=== PATIENT | female | born 2000 | race Two or more races ===

== ENCOUNTER 2023-10-01 11:28 | Inpatient (IN) | payer OTHER, SELFPAY ==
[~2023-10-01 11:28] MED LIST: Magnevist 469MG/ML 20 ML VIAL ONE
[2023-10-01 12:34] VITALS: BMI 29.8
[2023-10-01] MEDS ORDERED: Acetaminophen 325 MG TAB PO PRN (13:07)
[2023-10-01] MEDS ORDERED: Senokot S 8.6-50 MG TAB PO PRN (13:07)
[2023-10-01] MEDS ORDERED: Ondansetron ODT 4 MG TAB PO PRN (13:07)
[2023-10-01] MEDS ORDERED: Calcium Carbonate 500 MG ChewTAB PO PRN (13:07)
[2023-10-01] MEDS ORDERED: Dextrose 5%-Lactated Ringers 1,000 ML IV SCH ×2 (13:15→13:42)
[2023-10-01] MEDS ORDERED: Morphine 2 MG/ML VIAL SLOW IVP PRN (13:17)
[2023-10-01] MEDS ORDERED: HYDROcodone/Acetaminophen 5/325 mg Tablet PO PRN (13:18)
[2023-10-01] MEDS ORDERED: Labetalol HCl 100 MG/20 ML VIAL SLOW IVP PRN (13:25)
[2023-10-01] MEDS: Dextrose 5 % And 0.9 % NaCl 1,000 ML IV SCH ×2 (14:18→22:08)
[2023-10-01] MEDS: Pantoprazole 40 MG VIAL IVP SCH (14:19)
[2023-10-01 14:26] LABS: Lactic Acid 2.5 mmol/L (0.5-2.2)
[2023-10-01 14:29] LABS: Anion Gap 17 mmol/L (10-20); BUN (Urea Nitrogen) 11 mg/dL (7.0-18.7); Calc. Creatinine Clearance 114 mL/min (70-130); Calcium 8.9 mg/dL (7.8-10.44); Carbon Dioxide 23 mmol/L (22-29); Chloride 100 mmol/L (98-107); Estimated GFR 79; Glucose 186 mg/dL (70-105); Potassium 5.2 mmol/L (3.5-5.1); Sodium 135 mmol/L (136-145)
[2023-10-01 14:31] LABS: Magnesium 1.4 mg/dL (1.6-2.6); Phosphorus 4.3 mg/dL (2.3-4.7)
[2023-10-01] MEDS: Morphine 4 MG/ML VIAL SLOW IVP PRN ×3 (14:44→22:14)
[2023-10-01] MEDS: Magnesium 2 GM/50 ML(in water) 2 GM in Premix 1 BAG IVPB SCH ×2 (16:26→17:33)
[2023-10-01] MEDS ORDERED: Aripiprazole 10 MG TAB PO SCH (21:00)
[2023-10-01] MEDS: Multivit, Therapeutic 1 TAB PO SCH (22:00)
[2023-10-01] MEDS: Thiamine 100 MG TAB PO SCH (22:01)
[2023-10-01] MEDS: Folic Acid 1 MG TAB PO SCH (22:01)
[2023-10-01] MEDS: Sertraline 100 MG TAB PO SCH (22:01)
[2023-10-01] MEDS: levETIRAcetam 500 MG TAB PO SCH (22:09)
[2023-10-02] MEDS ORDERED: Lactated Ringer's 1,000 ML IV SCH (01:30)
[2023-10-02] MEDS: Morphine 4 MG/ML VIAL SLOW IVP PRN ×4 (03:37→21:35)
[2023-10-02] MEDS: Ondansetron PF 4 MG/2 ML Vial IVP PRN ×2 (04:01→12:38)
[2023-10-02] MEDS: Dextrose 5 % And 0.9 % NaCl 1,000 ML IV SCH ×2 (04:30→20:50)
[2023-10-02 05:13] LABS: #Monocytes 0.8 10x3/uL (0.0-1.1); #Neutrophils 7.6 10x3/uL (1.5-8.4); %Basophils 0.4 % (0.0-2.0); %Eosinophils 0.1 % (0.0-6.0); %Lymphocytes 6.9 % (18.0-47.0); %Monocytes 9.1 % (0.0-10.0); Hematocrit 37.3 % (34.9-44.5); Hemoglobin 12.7 g/dL (12.0-15.5); Mean Corpuscular Hemoglobin 32.2 pg (27.0-33.0); Mean Corpuscular Volume 94.7 fl (81.6-98.3); Mean Platelet Volume 11.5 fl (7.4-10.4); Platelet Count 163 10x3/uL (150-450); RBC Distribution Width 15.9 % (11.5-14.5); Red Blood Cell (RBC) Count 3.94 10x6/uL (3.90-5.03); White Blood Cell (WBC) Count 9.1 10x3/uL (3.5-10.5)
[2023-10-02 05:21] LABS: Lactic Acid 2.6 mmol/L (0.5-2.2)
[2023-10-02 05:37] LABS: ALT (SGPT) 40 U/L (8-55); AST (SGOT) 66 U/L (5-34); Alkaline Phosphatase 74 U/L (40-110); Anion Gap 15 mmol/L (10-20); BUN (Urea Nitrogen) 13 mg/dL (7.0-18.7); Bilirubin, Total 1.8 mg/dL (0.2-1.2); Calc. Creatinine Clearance 107 mL/min (70-130); Calcium 8.1 mg/dL (7.8-10.44); Carbon Dioxide 19 mmol/L (22-29); Chloride 100 mmol/L (98-107); Estimated GFR 73; Globulin 2.5 g/dL (2.4-3.5); Glucose 367 mg/dL (70-105); Lipase Greater than 1000 U/L (8-78); Magnesium 2.1 mg/dL (1.6-2.6); Phosphorus 2.7 mg/dL (2.3-4.7); Protein, Total 5.5 g/dL (6.0-8.3); Sodium 129 mmol/L (136-145)
[2023-10-02 05:46] LABS: Free T4 (Free Thyroxine) 0.75 ng/dL (0.70-1.48)
[2023-10-02] MEDS ORDERED: Dextrose 5% in Water 1,000 ML IV PRN (07:44)
[2023-10-02] MEDS ORDERED: HumaLOG 300 UNITS/3 ML VIAL SC PRN (07:44)
[2023-10-02] MEDS ORDERED: Glucagon 1 MG/ML KIT IM PRN (07:44)
[2023-10-02] MEDS ORDERED: Dextrose 50% Abboject 50 ML SYRINGE SLOW IVP PRN (07:44)
[2023-10-02] MEDS: Albumin 25% 25 GM/100 ML BOT IVPB SCH ×3 (08:28→20:21)
[2023-10-02] MEDS: levETIRAcetam 500 MG TAB PO SCH ×2 (08:40→20:21)
[2023-10-02] MEDS ORDERED: Acetaminophen 325 MG TAB PO PRN (08:46)
[2023-10-02] MEDS ORDERED: Sodium Bicarbonate 150 MEQ in Dextrose 5% in Water 1,000 ML IV SCH ×2 (09:00)
[2023-10-02] MEDS ORDERED: Aripiprazole 10 MG TAB PO SCH (09:00)
[2023-10-02] MEDS ORDERED: levETIRAcetam 500 MG/5 ML VIAL SLOW IVP PRN (09:00)
[2023-10-02] MEDS ORDERED: Sertraline 100 MG TAB PO SCH (09:00)
[2023-10-02] MEDS: Sodium Chloride 0.9% 1,000 ML IV SCH ×2 (09:01→14:27)
[2023-10-02 14:00] LABS: Hemoglobin A1c 4.9 % (4.0-6.0)
[2023-10-02] MEDS: Pantoprazole 40 MG VIAL IVP SCH (14:27)
[2023-10-02] MEDS ORDERED: Sodium Chloride 0.9% 1,000 ML IV SCH (14:45)
[2023-10-02] MEDS: HumaLOG 300 UNITS/3 ML VIAL SC PRN (16:50)
[2023-10-02 17:30] LABS: Anion Gap 16 mmol/L (10-20); BUN (Urea Nitrogen) 12 mg/dL (7.0-18.7); Calc. Creatinine Clearance 117 mL/min (70-130); Calcium 8.1 mg/dL (7.8-10.44); Carbon Dioxide 21 mmol/L (22-29); Chloride 101 mmol/L (98-107); Estimated GFR 81; Glucose 314 mg/dL (70-105); Potassium 4.7 mmol/L (3.5-5.1); Sodium 133 mmol/L (136-145)
[2023-10-02] MEDS: Folic Acid 1 MG TAB PO SCH (20:21)
[2023-10-02] MEDS: Multivit, Therapeutic 1 TAB PO SCH (20:21)
[2023-10-02] MEDS: Thiamine 100 MG TAB PO SCH (20:21)
[2023-10-02] MEDS: Sertraline 100 MG TAB PO SCH (20:21)
[2023-10-02] MEDS: Labetalol HCl 100 MG/20 ML VIAL SLOW IVP PRN (20:37)
[2023-10-03] MEDS: Sodium Chloride 0.9% 1,000 ML IV SCH ×5 (03:07→18:46)
[2023-10-03] MEDS: Albumin 25% 25 GM/100 ML BOT IVPB SCH (03:07)
[2023-10-03 04:15] LABS: Hematocrit 31.3 % (34.9-44.5); Hemoglobin 10.5 g/dL (12.0-15.5); Mean Corpuscular HGB CONC 33.5 g/dL (32.0-36.0); Mean Corpuscular Hemoglobin 32.2 pg (27.0-33.0); Mean Platelet Volume 11.8 fl (7.4-10.4); Platelet Count 138 10x3/uL (150-450); RBC Distribution Width 16.1 % (11.5-14.5); Red Blood Cell (RBC) Count 3.26 10x6/uL (3.90-5.03); White Blood Cell (WBC) Count 7.9 10x3/uL (3.5-10.5)
[2023-10-03 04:17] LABS: Lactic Acid 1.1 mmol/L (0.5-2.2)
[2023-10-03 04:23] LABS: MDiff Complete? YES
[2023-10-03 04:29] LABS: ALT (SGPT) 28 U/L (8-55); AST (SGOT) 56 U/L (5-34); Albumin 3.4 g/dL (3.5-5.0); Alkaline Phosphatase 55 U/L (40-110); Anion Gap 17 mmol/L (10-20); BUN (Urea Nitrogen) 9 mg/dL (7.0-18.7); Bilirubin, Total 1.6 mg/dL (0.2-1.2); Calc. Creatinine Clearance 149 mL/min (70-130); Carbon Dioxide 19 mmol/L (22-29); Chloride 102 mmol/L (98-107); Estimated GFR 109; Globulin 2.4 g/dL (2.4-3.5); Glucose 269 mg/dL (70-105); Lipase 930 U/L (8-78); Magnesium 2.3 mg/dL (1.6-2.6); Phosphorus 1.9 mg/dL (2.3-4.7); Potassium 4.3 mmol/L (3.5-5.1); Protein, Total 5.8 g/dL (6.0-8.3); Sodium 134 mmol/L (136-145)
[2023-10-03 04:51] LABS: Platelet Adequacy Comment Appears Decreased; RBC Morph Comment Within Normal Limits
[2023-10-03 04:54] LABS: Band 10 % (5-11); Eosinophils 1 % (0-10); Lymphocytes 10 % (21-51); Monocytes 8 % (0-10); Neutrophil 71 % (42-75)
[2023-10-03] MEDS: HumaLOG 300 UNITS/3 ML VIAL SC PRN ×5 (06:04→23:40)
[2023-10-03] MEDS: Ondansetron PF 4 MG/2 ML Vial IVP PRN ×3 (06:05→20:12)
[2023-10-03] MEDS: levETIRAcetam 500 MG TAB PO SCH ×2 (08:42→20:13)
[2023-10-03] MEDS ORDERED: Sodium Phosphate 15 MMOL in Sodium Chloride 0.9% 250 ML 250 ML IVPB SCH (09:00)
[2023-10-03] MEDS: Morphine 4 MG/ML VIAL SLOW IVP PRN (09:33)
[2023-10-03] MEDS: Pantoprazole 40 MG VIAL IVP SCH (14:12)
[2023-10-03] MEDS: Morphine 2 MG/ML VIAL SLOW IVP PRN ×3 (14:12→23:47)
[2023-10-03] MEDS: Multivit, Therapeutic 1 TAB PO SCH (20:13)
[2023-10-03] MEDS: Thiamine 100 MG TAB PO SCH (20:13)
[2023-10-03] MEDS: Sertraline 100 MG TAB PO SCH (20:13)
[2023-10-03] MEDS: Folic Acid 1 MG TAB PO SCH (20:13)
[2023-10-03] MEDS: Labetalol HCl 100 MG/20 ML VIAL SLOW IVP PRN (23:40)
[2023-10-04 04:41] LABS: ALT (SGPT) 24 U/L (8-55); AST (SGOT) 33 U/L (5-34); Alkaline Phosphatase 44 U/L (40-110); Anion Gap 11 mmol/L (10-20); BUN (Urea Nitrogen) 4 mg/dL (7.0-18.7); Bilirubin, Total 1.1 mg/dL (0.2-1.2); Calc. Creatinine Clearance 184 mL/min (70-130); Calcium 7.8 mg/dL (7.8-10.44); Carbon Dioxide 24 mmol/L (22-29); Chloride 104 mmol/L (98-107); Estimated GFR 129; Globulin 2.3 g/dL (2.4-3.5); Glucose 158 mg/dL (70-105); Hematocrit 31.2 % (34.9-44.5); Hemoglobin 10.4 g/dL (12.0-15.5); Lipase 187 U/L (8-78); Magnesium 2.2 mg/dL (1.6-2.6); Mean Corpuscular HGB CONC 33.3 g/dL (32.0-36.0); Mean Corpuscular Hemoglobin 31.7 pg (27.0-33.0); Mean Corpuscular Volume 95.1 fl (81.6-98.3); Mean Platelet Volume 11.3 fl (7.4-10.4); Phosphorus 1.3 mg/dL (2.3-4.7); Platelet Count 171 10x3/uL (150-450); Potassium 3.4 mmol/L (3.5-5.1); Protein, Total 5.3 g/dL (6.0-8.3); RBC Distribution Width 16.4 % (11.5-14.5); Red Blood Cell (RBC) Count 3.28 10x6/uL (3.90-5.03); Sodium 136 mmol/L (136-145); White Blood Cell (WBC) Count 4.3 10x3/uL (3.5-10.5)
[2023-10-04] MEDS ORDERED: Potassium Phosphate 15 MMOL in Sodium Chloride 0.9% 100 ML IVPB SCH (05:15)
[2023-10-04 05:23] LABS: MDiff Complete? YES
[2023-10-04 05:48] LABS: Band 9 % (5-11); Eosinophils 2 % (0-10); Lymphocytes 13 % (21-51); Monocytes 13 % (0-10); Neutrophil 61 % (42-75); Nucleated RBC (Manual Ct) 1 % (0); Reactive Lymphocytes 2 % (0-10)
[2023-10-04 05:50] LABS: Anisocytosis SLIGHT = 6-15 cells (100X) (0-5/hpf); Hypochromia SLIGHT = 6-15 cells (100X) (0-5/hpf); Macrocytosis SLIGHT = 6-15 cells (100X) (0-5/hpf); Microcytosis SLIGHT = 6-15 cells (100X) (0-5/hpf); Platelet Adequacy Comment Appears Adequate
[2023-10-04] MEDS: Sodium Chloride 0.9% 1,000 ML IV SCH ×2 (08:56→15:32)
[2023-10-04] MEDS: levETIRAcetam 500 MG TAB PO SCH ×2 (08:58→21:16)
[2023-10-04] MEDS: HYDROcodone/Acetaminophen 5/325 mg Tablet PO PRN ×2 (10:31→18:31)
[2023-10-04] MEDS: Pantoprazole 40 MG VIAL IVP SCH (15:16)
[2023-10-04] MEDS: Ondansetron PF 4 MG/2 ML Vial IVP PRN ×2 (15:32→21:08)
[2023-10-04] MEDS: HumaLOG 300 UNITS/3 ML VIAL SC PRN (15:34)
[2023-10-04] MEDS: Morphine 2 MG/ML VIAL SLOW IVP PRN (21:08)
[2023-10-04] MEDS: Multivit, Therapeutic 1 TAB PO SCH (21:16)
[2023-10-04] MEDS: Thiamine 100 MG TAB PO SCH (21:16)
[2023-10-04] MEDS: Folic Acid 1 MG TAB PO SCH (21:16)
[2023-10-04] MEDS: Sertraline 100 MG TAB PO SCH (21:16)
[2023-10-05 04:05] LABS: Hematocrit 31.4 % (34.9-44.5); Hemoglobin 10.6 g/dL (12.0-15.5); Mean Corpuscular HGB CONC 33.8 g/dL (32.0-36.0); Mean Corpuscular Hemoglobin 32.2 pg (27.0-33.0); Mean Corpuscular Volume 95.4 fl (81.6-98.3); Mean Platelet Volume 11.5 fl (7.4-10.4); Platelet Count 185 10x3/uL (150-450); RBC Distribution Width 16.3 % (11.5-14.5); Red Blood Cell (RBC) Count 3.29 10x6/uL (3.90-5.03); White Blood Cell (WBC) Count 4.6 10x3/uL (3.5-10.5)
[2023-10-05 04:09] LABS: ALT (SGPT) 23 U/L (8-55); AST (SGOT) 27 U/L (5-34); Albumin 2.9 g/dL (3.5-5.0); Alkaline Phosphatase 50 U/L (40-110); Anion Gap 14 mmol/L (10-20); BUN (Urea Nitrogen) 5 mg/dL (7.0-18.7); Calc. Creatinine Clearance 196 mL/min (70-130); Calcium 7.9 mg/dL (7.8-10.44); Carbon Dioxide 23 mmol/L (22-29); Chloride 101 mmol/L (98-107); Estimated GFR 131; Globulin 2.4 g/dL (2.4-3.5); Glucose 166 mg/dL (70-105); Lipase 74 U/L (8-78); Phosphorus 2.7 mg/dL (2.3-4.7); Potassium 3.4 mmol/L (3.5-5.1); Protein, Total 5.3 g/dL (6.0-8.3); Sodium 135 mmol/L (136-145)
[2023-10-05 04:11] LABS: MDiff Complete? YES
[2023-10-05] MEDS: Morphine 2 MG/ML VIAL SLOW IVP PRN ×3 (04:44→19:27)
[2023-10-05] MEDS: Ondansetron PF 4 MG/2 ML Vial IVP PRN ×3 (04:44→16:36)
[2023-10-05] MEDS: Sodium Chloride 0.9% 1,000 ML IV SCH ×2 (06:08→21:32)
[2023-10-05 06:44] LABS: Band 7 % (5-11); Eosinophils 5 % (0-10); Lymphocytes 17 % (21-51); Metamyelocyte 1 % (0-0); Monocytes 17 % (0-10); Neutrophil 53 % (42-75)
[2023-10-05 06:50] LABS: Anisocytosis SLIGHT = 6-15 cells (100X) (0-5/hpf); Hypochromia SLIGHT = 6-15 cells (100X) (0-5/hpf); Macrocytosis SLIGHT = 6-15 cells (100X) (0-5/hpf); Microcytosis SLIGHT = 6-15 cells (100X) (0-5/hpf); Platelet Adequacy Comment Appears Adequate
[2023-10-05] MEDS: levETIRAcetam 500 MG TAB PO SCH ×2 (09:37→21:31)
[2023-10-05] MEDS: Metoclopramide HCl 10 MG/2 ML VIAL IVP PRN ×2 (12:19→21:30)
[2023-10-05] MEDS: Pantoprazole 40 MG VIAL IVP SCH (16:36)
[2023-10-05] MEDS: HumaLOG 300 UNITS/3 ML VIAL SC PRN (21:30)
[2023-10-05] MEDS: Thiamine 100 MG TAB PO SCH (21:31)
[2023-10-05] MEDS: Folic Acid 1 MG TAB PO SCH (21:31)
[2023-10-05] MEDS: Multivit, Therapeutic 1 TAB PO SCH (21:31)
[2023-10-05] MEDS: Sertraline 100 MG TAB PO SCH (21:32)
[2023-10-05] MEDS: Metoclopramide HCl 10 MG/2 ML VIAL IVP SCH (22:43)
[2023-10-05] MEDS: Ketorolac Tromethamine 30 MG/ML VIAL IVP PRN (23:05)
[2023-10-05] MEDS: Zolpidem Tartrate 5 MG TAB PO PRN (23:07)
[2023-10-06 04:07] LABS: Hematocrit 31.1 % (34.9-44.5); Hemoglobin 10.8 g/dL (12.0-15.5); Mean Corpuscular HGB CONC 34.7 g/dL (32.0-36.0); Mean Corpuscular Hemoglobin 32.8 pg (27.0-33.0); Mean Corpuscular Volume 94.5 fl (81.6-98.3); Platelet Count 232 10x3/uL (150-450); RBC Distribution Width 16.7 % (11.5-14.5); Red Blood Cell (RBC) Count 3.29 10x6/uL (3.90-5.03); White Blood Cell (WBC) Count 8.5 10x3/uL (3.5-10.5)
[2023-10-06 04:08] LABS: Anion Gap 16 mmol/L (10-20); BUN (Urea Nitrogen) 5 mg/dL (7.0-18.7); Calc. Creatinine Clearance 181 mL/min (70-130); Calcium 8.1 mg/dL (7.8-10.44); Carbon Dioxide 23 mmol/L (22-29); Chloride 101 mmol/L (98-107); Estimated GFR 128; Glucose 168 mg/dL (70-105); Sodium 137 mmol/L (136-145)
[2023-10-06 04:12] LABS: MDiff Complete? YES
[2023-10-06] MEDS: Metoclopramide HCl 10 MG/2 ML VIAL IVP SCH ×4 (04:15→21:07)
[2023-10-06 06:07] LABS: Band 12 % (5-11); Eosinophils 1 % (0-10); Lymphocytes 7 % (21-51); Metamyelocyte 1 % (0-0); Monocytes 24 % (0-10); Neutrophil 55 % (42-75)
[2023-10-06 06:14] LABS: Anisocytosis SLIGHT = 6-15 cells (100X) (0-5/hpf); Hypochromia SLIGHT = 6-15 cells (100X) (0-5/hpf); Macrocytosis SLIGHT = 6-15 cells (100X) (0-5/hpf); Microcytosis SLIGHT = 6-15 cells (100X) (0-5/hpf)
[2023-10-06 06:15] LABS: Platelet Adequacy Comment Appears Adequate; Polychromasia SLIGHT = 2-3 cells (100X) (0-2/hpf)
[2023-10-06] MEDS: levETIRAcetam 500 MG TAB PO SCH ×2 (08:51→21:07)
[2023-10-06] MEDS: Potassium Chloride 20 MEQ TAB PO SCH ×2 (08:51→13:43)
[2023-10-06] MEDS ORDERED: Iopamidol 300 61% 100 ML VIAL FS ONE (10:37)
[2023-10-06] MEDS ORDERED: Piperacillin/Tazobactam 3.375 GM in Sodium Chloride 0.9% 100 ML IVPB SCH ×3 (13:00→18:00)
[2023-10-06] MEDS: Pantoprazole 40 MG VIAL IVP SCH (13:43)
[2023-10-06] MEDS: Sodium Chloride 0.9% 1,000 ML IV SCH ×2 (13:44→18:43)
[2023-10-06] MEDS: Ketorolac Tromethamine 30 MG/ML VIAL IVP PRN ×2 (14:54→21:08)
[2023-10-06] MEDS: Multivit, Therapeutic 1 TAB PO SCH (21:07)
[2023-10-06] MEDS: Thiamine 100 MG TAB PO SCH (21:07)
[2023-10-06] MEDS: Zolpidem Tartrate 5 MG TAB PO PRN (21:07)
[2023-10-06] MEDS: Folic Acid 1 MG TAB PO SCH (21:07)
[2023-10-06] MEDS: Sertraline 100 MG TAB PO SCH (21:07)
[2023-10-07] MEDS: Sodium Chloride 0.9% 1,000 ML IV SCH (04:46)
[2023-10-07] MEDS: Metoclopramide HCl 10 MG/2 ML VIAL IVP SCH ×4 (04:46→21:25)
[2023-10-07 05:23] LABS: Hematocrit 29.6 % (34.9-44.5); Hemoglobin 10.1 g/dL (12.0-15.5); Mean Corpuscular HGB CONC 34.1 g/dL (32.0-36.0); Mean Corpuscular Hemoglobin 32.2 pg (27.0-33.0); Mean Corpuscular Volume 94.3 fl (81.6-98.3); Mean Platelet Volume 10.6 fl (7.4-10.4); Platelet Count 239 10x3/uL (150-450); Red Blood Cell (RBC) Count 3.14 10x6/uL (3.90-5.03); White Blood Cell (WBC) Count 10.8 10x3/uL (3.5-10.5)
[2023-10-07 05:27] LABS: Phosphorus 2.6 mg/dL (2.3-4.7)
[2023-10-07 05:31] LABS: ALT (SGPT) 28 U/L (8-55); AST (SGOT) 35 U/L (5-34); Albumin 3.1 g/dL (3.5-5.0); Alkaline Phosphatase 75 U/L (40-110); Anion Gap 14 mmol/L (10-20); BUN (Urea Nitrogen) Less than 4 mg/dL (7.0-18.7); Bilirubin, Total 0.9 mg/dL (0.2-1.2); CRP (Inflammatory) 16.23 mg/dL (= or < 0.5); Calc. Creatinine Clearance 137 mL/min (70-130); Carbon Dioxide 22 mmol/L (22-29); Chloride 105 mmol/L (98-107); Estimated GFR 99; Globulin 2.3 g/dL (2.4-3.5); Glucose 164 mg/dL (70-105); Lipase 78 U/L (8-78); Magnesium 1.9 mg/dL (1.6-2.6); Potassium 3.3 mmol/L (3.5-5.1); Protein, Total 5.4 g/dL (6.0-8.3); Sodium 138 mmol/L (136-145)
[2023-10-07 06:48] LABS: MDiff Complete? YES
[2023-10-07 06:53] LABS: Band 27 % (5-11); Eosinophils 3 % (0-10); Lymphocytes 9 % (21-51); Metamyelocyte 1 % (0-0); Monocytes 10 % (0-10); Neutrophil 49 % (42-75); Reactive Lymphocytes 1 % (0-10)
[2023-10-07 06:54] LABS: RBC Morph Comment Within Normal Limits
[2023-10-07 06:55] LABS: Platelet Adequacy Comment Appears Adequate; Toxic Granulation SLIGHT
[2023-10-07] MEDS: levETIRAcetam 500 MG TAB PO SCH ×2 (09:18→21:25)
[2023-10-07] MEDS ORDERED: Potassium Chloride 20 MEQ TAB PO SCH (09:30)
[2023-10-07] MEDS: Pantoprazole 40 MG VIAL IVP SCH (13:16)
[2023-10-07] MEDS: Ketorolac Tromethamine 30 MG/ML VIAL IVP PRN ×2 (15:22→21:25)
[2023-10-07] MEDS: Multivit, Therapeutic 1 TAB PO SCH (21:25)
[2023-10-07] MEDS: Sertraline 100 MG TAB PO SCH (21:25)
[2023-10-07] MEDS: Thiamine 100 MG TAB PO SCH (21:25)
[2023-10-07] MEDS: Folic Acid 1 MG TAB PO SCH (21:25)
[2023-10-07] MEDS: Zolpidem Tartrate 5 MG TAB PO PRN (21:31)
[2023-10-08] MEDS: Metoclopramide HCl 10 MG/2 ML VIAL IVP SCH ×2 (04:24→11:00)
[2023-10-08 05:08] LABS: Hematocrit 29.7 % (34.9-44.5); Hemoglobin 10.1 g/dL (12.0-15.5); Mean Corpuscular Hemoglobin 32.1 pg (27.0-33.0); Mean Corpuscular Volume 94.3 fl (81.6-98.3); Mean Platelet Volume 10.3 fl (7.4-10.4); Platelet Count 262 10x3/uL (150-450); RBC Distribution Width 17.2 % (11.5-14.5); Red Blood Cell (RBC) Count 3.15 10x6/uL (3.90-5.03); White Blood Cell (WBC) Count 12.8 10x3/uL (3.5-10.5)
[2023-10-08 05:30] LABS: Anion Gap 14 mmol/L (10-20); BUN (Urea Nitrogen) Less than 4 mg/dL (7.0-18.7); Calc. Creatinine Clearance 128 mL/min (70-130); Calcium 7.9 mg/dL (7.8-10.44); Carbon Dioxide 22 mmol/L (22-29); Chloride 106 mmol/L (98-107); Estimated GFR 91; Glucose 151 mg/dL (70-105); Potassium 3.3 mmol/L (3.5-5.1); Sodium 139 mmol/L (136-145)
[2023-10-08 05:44] LABS: MDiff Complete? YES
[2023-10-08 05:46] LABS: Band 9 % (5-11); Lymphocytes 10 % (21-51); Monocytes 3 % (0-10); Neutrophil 74 % (42-75); Reactive Lymphocytes 4 % (0-10)
[2023-10-08 05:51] LABS: Anisocytosis SLIGHT = 6-15 cells (100X) (0-5/hpf); Toxic Granulation SLIGHT
[2023-10-08 05:52] LABS: Hypochromia SLIGHT = 6-15 cells (100X) (0-5/hpf); Macrocytosis SLIGHT = 6-15 cells (100X) (0-5/hpf); Platelet Adequacy Comment Appears Adequate
[2023-10-08] MEDS: levETIRAcetam 500 MG TAB PO SCH (08:10)
[2023-10-08 09:18] VITALS: BP 142/92; TEMP 97.4
[2023-10-08 14:32] LABS: EliA Celiac New Method **** NEW METHOD ****; t-Transglutaminase (tTG) IgA 0.5 EliAU/mL (<7 Negative)
== END 2023-10-08 12:45 | disposition home or self-care (01) | DRG 439 ==
LOC: CSHPP 11:28 → CSHTELE 10-02 07:54
PROVIDERS: ADMIT Internal Medicine; ATTEND Hospitalist
PROC: 30233J1 Transfusion of Nonautologous Serum Albumin into Peripheral Vein, Percutaneous Approach (ICD-10-PCS; principal; 2023-10-02)
DX: K85.91 Acute pancreatitis with uninfected necrosis, unspecified (principal); E87.1 Hypo-osmolality and hyponatremia; E87.20 Acidosis, unspecified; F41.9 Anxiety disorder, unspecified; G40.909 Epilepsy, unspecified, not intractable, without status epilepticus; F10.90 Alcohol use, unspecified, uncomplicated; E87.5 Hyperkalemia; E83.42 Hypomagnesemia; R16.0 Hepatomegaly, not elsewhere classified; K76.9 Liver disease, unspecified; R73.9 Hyperglycemia, unspecified; E80.6 Other disorders of bilirubin metabolism; E87.6 Hypokalemia; E83.39 Other disorders of phosphorus metabolism; F32.9 Major depressive disorder, single episode, unspecified; Z71.41 Alcohol abuse counseling and surveillance of alcoholic; Z79.899 Other long term (current) drug therapy; Z98.890 Other specified postprocedural states; Z83.3 Family history of diabetes mellitus
CPT/HCPCS: 36415; 36416; 74177; 74183; 80048; 80053; 82787; 83036; 83516; 83605; 83690; 83735; 84100; 84439; 84443; 84478; 85025; 86140; 94760; 94762; A9579; C9113; J1650; J1815; J1885; J2270; J2272; J2405; J2765; J3475; J3490; J7042; J7050; J7120; P9047; Q0162; Q9967

== ENCOUNTER 2024-08-26 19:24 | Emergency (ER) | payer OTHER ==
[2024-08-26] MEDS ORDERED: levETIRAcetam 500 MG (5 mL) VIAL ONE (19:52)
[2024-08-26 20:07] LABS: Bilirubin Neg (Negative); Blood, Urine 25 (Negative); Clarity Clear (Clear); Glucose, Urine (Dipstick) >=1000 mg/dL (Negative); Ketone, Urine 50 mg/dL (Negative); Leukocyte Negative (Negative); Nitrite Negative (Negative); Protein, Urine (Dipstick) 30 mg/dl (Neg-Trace); Specific Gravity, Urine 1.025 (1.005-1.030); Urobilinogen Normal mg/dL (Less than 2)
[2024-08-26 20:31] LABS: #Basophils 0.05 10x3/uL (0.0-0.2); #Eosinphils 0.01 10x3/uL (0.0-0.5); #Monocytes 0.45 10x3/uL (0.0-1.1); #Neutrophils 6.84 10x3/uL (1.5-8.4); %Basophils 0.6 % (0.0-2.0); %Eosinophils 0.1 % (0.0-6.0); %Lymphocytes 11.4 % (18.0-47.0); %Monocytes 5.4 % (0.0-10.0); %Neutrophils 82.1 % (40.0-75.0); Hematocrit 40.7 % (34.9-44.5); Hemoglobin 13.5 g/dL (12.0-15.5); Mean Corpuscular HGB CONC 33.2 g/dL (32.0-36.0); Mean Corpuscular Hemoglobin 28.7 pg (27.0-33.0); Mean Corpuscular Volume 86.4 fL (81.6-98.3); Platelet Count 244 10x3/uL (150-450); RBC Distribution Width 14.3 % (11.5-14.5); Red Blood Cell (RBC) Count 4.71 10x6/uL (3.90-5.03); White Blood Cell (WBC) Count 8.3 10x3/uL (3.5-10.5)
[2024-08-26 20:33] LABS: Bacteria/HPF 2+ HPF (None Seen); CAUTI Indications for Culture Alt mental st,lethar
[2024-08-26 20:34] LABS: Mucous/LPF 1+ LPF (<2+)
[2024-08-26 20:35] LABS: Urine Culture Reflex No No
[2024-08-26 20:42] LABS: BHCG - Serum Negative (NEGATIVE); Pregs Control Background? CLEAR/WHITE (CLR/WHITE); Pregs Control Bar Appear? YES (CONTROL BAR)
[2024-08-26 20:47] LABS: Anion Gap 22 mmol/L (10-20); BUN (Urea Nitrogen) 15 mg/dL (7.0-18.7); Calc. Creatinine Clearance 0 mL/min (70-130); Calcium 9.4 mg/dL (7.8-10.44); Carbon Dioxide 17 mmol/L (22-29); Chloride 104 mmol/L (98-107); Estimated GFR 97; Glucose 145 mg/dL (70-105); Magnesium 1.7 mg/dL (1.6-2.6); Potassium 4.6 mmol/L (3.5-5.1); Sodium 138 mmol/L (136-145)
== END 2024-08-26 22:42 | disposition home or self-care (01) ==
LOC: CSHERS 19:24
DX: G40.909 Epilepsy, unspecified, not intractable, without status epilepticus (principal); N39.0 Urinary tract infection, site not specified; E11.9 Type 2 diabetes mellitus without complications
CPT/HCPCS: 36415; 80048; 81001; 83605; 83735; 84703; 85025; 96374; J1953